=== PATIENT | female | born 1960 | race Caucasian/White ===

== ENCOUNTER → 2017-04-10 | Outpatient (REF) | LOC: ZLAB.WCH 10:26 | DX: Z01.89 Encounter for other specified special examinations (principal) ==

== ENCOUNTER → 2018-08-12 | Outpatient (REF) ==
[2018-08-12 10:40] LABS: THYROID STIMULATING HORMONE 3.01 uIU/mL (0.465-4.680)
== END ==
LOC: ZLAB.WCH 09:55
PROVIDERS: Family Medicine
DX: Z01.89 Encounter for other specified special examinations (principal)

== ENCOUNTER 2020-11-05 22:25 | Emergency (ER) | payer OTHER ==
[~2020-11-05] VITALS: Ht 165.1 cm; Wt 70.5 kg
[2020-11-06 00:04] VITALS: BP 126/71; PULSE 74
== END 2020-11-06 00:04 | disposition home or self-care (01) ==
LOC: COL.ER 22:25
DX: S61.212A Laceration without foreign body of right middle finger without damage to nail, initial encounter (principal); Z88.4 Allergy status to anesthetic agent; W25.XXXA Contact with sharp glass, initial encounter; Y93.G1 Activity, food preparation and clean up